=== PATIENT | female | born 1985 | race Caucasian/White ===

== ENCOUNTER → 2018-01-28 09:00 | Outpatient (CLI) | payer OTHER, SELFPAY ==
[2018-02-03 14:10] LABS: HPV APTIMA, High Risk Negative (Negative)
== END ==
PROVIDERS: Family Provider Family Medicine; PCP Family Medicine; Referring Provider Obstetrics & Gynecology; Visit Provider Obstetrics & Gynecology
DX: Z12.4 Encounter for screening for malignant neoplasm of cervix (principal)
CPT/HCPCS: 87624; 88175; G0145

== ENCOUNTER → 2018-11-24 11:31 | Outpatient (CLI) | payer OTHER, SELFPAY ==
[2018-11-24 11:15] VITALS: BMI 21.1
[2018-11-24 12:02] LABS: Absolute Lymphocyte Count 2.31 X10^3/uL (0.83-4.51); Absolute Neutrophil Count 9.6 X10^3/uL (2.0-7.7); Basophil# 0.05 X10^3/uL; Basophil% 0.4 % (0-1); Eosinophil# 0.09 X10^3/uL; Eosinophils% 0.7 % (0-5); Hematocrit 43.3 % (37-47); Hemoglobin 15.2 g/dL (12.0-15.0); Lymphocyte # 2.31 X10^3/ul (4.0); Lymphocyte % 18.1 % (19-41); Mean Corp Hgb Conc 35.1 g/dL (32-36); Mean Corpuscular Hgb 32.1 pg (27.0-32.0); Mean Corpuscular Volume 91.4 fL (81-99); Monocyte# 0.66 X10^3/uL; Monocyte% 5.2 % (0-10); NRBC Flagged by Analyzer 0 % (0-5); Neutrophil # 9.62 X10^3/uL (2.7-7.7); Neutrophil % 75.1 % (47-70); Platelet Count 309 K/mm3 (150-450); RBC Distribution Width SD 40.3 fl (35.1-43.9); Red Blood Count 4.74 M/mm3 (4.2-5.4); White Blood Count 12.8 K/mm3 (4.4-11.0)
[2018-11-24 13:30] LABS: HIV - WCH Non-Reactive (Nonreactive); Hepatitis B Surface Antigen Non-Reactive (Nonreactive); Rubella IgG 76.6 IU/mL
[2018-11-27 02:05] LABS: Rapid Plasmin Reagin (RPR) NONREACTIVE (NONREACTIVE)
== END ==
PROVIDERS: Family Provider Family Medicine; PCP Family Medicine; Visit Provider Obstetrics & Gynecology
DX: Z34.90 Encounter for supervision of normal pregnancy, unspecified, unspecified trimester (principal)
CPT/HCPCS: 36415; 85025; 86592; 86703; 86762; 86850; 86900; 86901; 87340

== ENCOUNTER → 2018-11-24 14:42 | Outpatient (CLI) | payer OTHER, SELFPAY ==
[2018-11-24 12:20] VITALS: BMI 21.1
[2018-11-24 17:14] LABS: Chlamydia Trachomatis by PCR Negative (Negative); Neisserai gonorrhoeae by PCR Negative (Negative); Probe Check PASS; Sample Adequacy Control PASS; Specimen Processing Control PASS
== END ==
PROVIDERS: Family Provider Family Medicine; PCP Family Medicine; Referring Provider Obstetrics & Gynecology; Visit Provider Obstetrics & Gynecology
DX: Z34.90 Encounter for supervision of normal pregnancy, unspecified, unspecified trimester (principal)
CPT/HCPCS: 87086; 87088; 87491; 87591

== ENCOUNTER → 2018-12-04 08:51 | Outpatient (CLI) | payer OTHER, SELFPAY ==
[2018-11-24 12:20] VITALS: BMI 21.1
== END ==
PROVIDERS: Family Provider Family Medicine; PCP Family Medicine; Referring Provider Obstetrics & Gynecology; Visit Provider Obstetrics & Gynecology
DX: Z34.81 Encounter for supervision of other normal pregnancy, first trimester (principal)

== ENCOUNTER → 2019-02-12 07:53 | Outpatient (CLI) | payer OTHER, SELFPAY ==
[2019-01-22 11:34] VITALS: BMI 21.1
--- NOTE | 2019-02-12 07:56 | US_ITS ---
STUDY: SECOND AND THIRD TRIMESTER OBSTETRICAL ULTRASOUND REASON FOR EXAM: Female, 33 years old anatomy LMP: TECHNIQUE: Transabdominal TECHNICAL QUALITY: Adequate. PRIOR ULTRASOUND: None. FINDINGS: There is a single intrauterine fetus. The fetus is in a variable presentation. There is demonstrated cardiac activity with a heart rate of 155 bpm. There is a normal amniotic fluid volume. The largest amniotic fluid pocket measures 6.1 x 5.1 cm.The placenta is posterior and fundal There are Grade 0 placental changes. The cervix measures 2.9 cm in length. The bilateral adnexal regions are normal. BIOMETRY: BPD: 4.2 cm: 18 weeks, 4 days HC: 16.6 cm: 19 weeks, 1 days AC: 14.7 cm: 20 weeks, 0 days FL: 3 cm: 19 weeks, 1 days CI: 0.72 FL/BPD: 0.71 FL/HC: FL/AC: 0.2 HC/AC: 1.13 age by current US: 19 weeks, 2 days. [place] by current US: July 07, 2019. Estimated weight: 301 grams, +/- 45 grams, 14.29 %. age by prior US: weeks, days. [place] by prior US: . Age by LMP: 20 weeks, 1 days. [place] by LMP: July 01, 2019. ANATOMY: Cranium: Normal lateral ventricles. Normal choroid plexus. Normal cerebellum. Normal cisterna magna. Normal face, nose and lips. Chest: Normal 4-chamber heart. Abdomen/Pelvis: Normal diaphragm. Normal stomach. Normal abdominal wall. Normal cord insertion. Normal 3 vessel cord. Normal kidneys. Normal bladder. Spine: Normal cervical spine. Normal thoracic spine. Normal lumbar spine. Normal sacrum. Extremities: Normal bilateral upper extremities. Normal bilateral lower extremities. US/OB Anatomy Scan IMPRESSION: Viable intrauterine gestation approximately 19-20 weeks gestational age. No anomalies identified at this time Electronically Signed: Patel Meza MD at 19:47 EST , Service support ,
== END ==
PROVIDERS: Family Provider Family Medicine; PCP Family Medicine; Referring Provider Obstetrics & Gynecology; Visit Provider Obstetrics & Gynecology
DX: Z36.9 Encounter for antenatal screening, unspecified (principal)
CPT/HCPCS: 76805

== ENCOUNTER → 2019-02-27 14:27 | Outpatient (CLI) | payer OTHER, SELFPAY ==
[2019-02-27 10:00] VITALS: BMI 21.1
[2019-02-27 14:29] LABS: Bacteria 0 SEEN /hpf (None Seen); Mucous, Urine 0 SEEN /hpf (<or=2+); Red Blood Cells-Urine 0 SEEN /hpf (0-5)
[2019-02-27 15:11] LABS: Color, Urine Straw (Yellow); Glucose, Dipstick Normal (Normal); Ketone-Dipstick Negative (Negative); Leukocyte Esterase-Dipstick 25 /ul (Negative); Nitrite-Dipstick Negative (Negative); Occult Blood-Urine Negative /ul (Negative); Protein-Dipstick Negative (Negative); Specific Gravity, Urine 1.005 (1.002-1.030); Urine Bilirubin Dipstick Negative (Negative); Urine Clarity Clear (Clear); Urine Urobilinogen Normal (Normal)
[2019-02-27 15:20] LABS: Squamous Epithelial Cells - UA 0-5 SEEN /hpf (5-10); White Blood Cells 0-5 SEEN /hpf (0-5)
== END ==
PROVIDERS: Family Provider Family Medicine; PCP Family Medicine; Referring Provider Physician Assistant; Visit Provider Physician Assistant
DX: R35.0 Frequency of micturition (principal); R39.15 Urgency of urination
CPT/HCPCS: 81001; 87086; 87088

== ENCOUNTER → 2019-04-05 10:20 | Outpatient (CLI) | payer OTHER, SELFPAY ==
[2019-03-25 10:02] VITALS: BMI 21.1
[2019-04-05 10:56] LABS: Absolute Lymphocyte Count 2.16 X10^3/uL (0.83-4.51); Absolute Neutrophil Count 7.8 X10^3/uL (2.0-7.7); Basophil# 0.05 X10^3/uL; Basophil% 0.5 % (0-1); Eosinophil# 0.07 X10^3/uL; Eosinophils% 0.7 % (0-5); Hematocrit 37.1 % (37-47); Hemoglobin 12.7 g/dL (12.0-15.0); Lymphocyte # 2.16 X10^3/ul (4.0); Lymphocyte % 20.2 % (19-41); Mean Corp Hgb Conc 34.2 g/dL (32-36); Mean Corpuscular Hgb 32.2 pg (27.0-32.0); Mean Corpuscular Volume 93.9 fL (81-99); Mean Platelet Vol. 9.2 fl (6.2-12.0); Monocyte# 0.55 X10^3/uL; Monocyte% 5.1 % (0-10); NRBC Flagged by Analyzer 0 % (0-5); Neutrophil % 72.8 % (47-70); Platelet Count 288 K/mm3 (150-450); RBC Distribution Width CV 12.2 % (11.6-14.6); RBC Distribution Width SD 41.9 fl (35.1-43.9); Red Blood Count 3.95 M/mm3 (4.2-5.4); White Blood Count 10.7 K/mm3 (4.4-11.0)
[2019-04-05 11:19] LABS: Glucose Challenge Gest 1H 50g 154 mg/dL (70-140)
== END ==
PROVIDERS: Family Provider Family Medicine; PCP Family Medicine; Referring Provider Obstetrics & Gynecology; Visit Provider Obstetrics & Gynecology
DX: Z34.81 Encounter for supervision of other normal pregnancy, first trimester (principal)
CPT/HCPCS: 36415; 82950; 85025

== ENCOUNTER → 2019-05-05 07:03 | Outpatient (CLI) | payer OTHER, SELFPAY ==
[2019-04-22 10:42] VITALS: BMI 21.1
[2019-05-05 08:09] LABS: Glucose GTT-Gestation. Fasting 80 mg/dL (<105)
[2019-05-05 09:26] LABS: Glucose GTT-Gestational 1 Hr 211 mg/dL (<190)
[2019-05-05 09:55] LABS: Glucose GTT-Gestational 2 Hr 231 mg/dL (<165)
[2019-05-05 11:34] LABS: Glucose GTT-Gestational 3 Hr 184 L (<145)
== END ==
PROVIDERS: PCP Family Medicine; Referring Provider Obstetrics & Gynecology; Visit Provider Obstetrics & Gynecology
DX: Z34.90 Encounter for supervision of normal pregnancy, unspecified, unspecified trimester (principal)
CPT/HCPCS: 36415; 82951; 82952

== ENCOUNTER → 2019-06-03 15:21 | Outpatient (CLI) | payer OTHER, SELFPAY ==
[2019-06-03 10:14] VITALS: BMI 21.1
== END ==
PROVIDERS: PCP Family Medicine; Referring Provider Obstetrics & Gynecology; Visit Provider Obstetrics & Gynecology
DX: Z34.93 Encounter for supervision of normal pregnancy, unspecified, third trimester (principal); Z3A.36 36 weeks gestation of pregnancy
CPT/HCPCS: 87081

== ENCOUNTER → 2019-06-09 07:55 | Outpatient (CLI) | payer OTHER, SELFPAY ==
[2019-05-21 10:16] VITALS: BMI 21.1
[2019-06-03 10:14] VITALS: BMI 21.1
--- NOTE | 2019-06-09 07:56 | US_ITS ---
STUDY: SECOND AND THIRD TRIMESTER OBSTETRICAL ULTRASOUND REASON FOR EXAM: Female, 33 years old growth -- gestational DM LMP: September 24, 2018. TECHNIQUE: Transabdominal TECHNICAL QUALITY: Adequate. PRIOR ULTRASOUND: Comparison is made with prior examination dated February 12, 2019. FINDINGS: There is a single intrauterine fetus. The fetus is in a cephalic presentation. There is demonstrated cardiac activity with a heart rate of 138 bpm. There is a normal amniotic fluid volume. The largest amniotic fluid pocket measures 5.3 cm. The amniotic fluid index (POOL) is 12.8 cm. The placenta is fundal in location. There are Grade 1 placental changes. The cervix length is not measured due to the position of the head. The bilateral adnexal regions are not visualized. BIOMETRY: BPD: 8.7 cm: 35 weeks, 0 days HC: 31.88 cm: 35 weeks, 6 days AC: 33.67 cm: 37 weeks, 4 days FL: 6.68 cm: 34 weeks, 2 days CI: 81% FL/BPD: 77% FL/HC: FL/AC: 20% HC/AC: 0.95 age by current US: 35 weeks, 3 days. [place] by current US: July 11, 2019. Estimated weight: 2911 grams, +/- 431 grams, 39 %. age by prior US: 36 weeks, 0 days. [place] by prior US: July 07, 2019. Age by LMP: 36 weeks, 6 days. [place] by LMP: July 01, 2019.. US/OB Limited With Biometrics IMPRESSION: Single live uterine gestation with a mean gestational age of 36 weeks. The measurements obtained today fall within the normal expected range. Electronically Signed: Gianluca Gaytan, at 11:17 EDT , Service support ,
== END ==
PROVIDERS: PCP Family Medicine; Referring Provider Obstetrics & Gynecology; Visit Provider Obstetrics & Gynecology
DX: O24.419 Gestational diabetes mellitus in pregnancy, unspecified control (principal); Z3A.00 Weeks of gestation of pregnancy not specified
CPT/HCPCS: 76816

== ENCOUNTER 2019-06-30 21:15 | Inpatient (IN) | payer OTHER, SELFPAY ==
[2019-06-09 08:39] VITALS: BMI 21.1
[2019-06-30 09:32] VITALS: BMI 21.1
[2019-06-30 20:59] VITALS: BP 117/83; PULSE 78; TEMP 37
[2019-06-30 21:03] VITALS: BMI 24.9
[2019-06-30 22:15] LABS: Absolute Lymphocyte Count 2.57 X10^3/uL (0.83-4.51); Absolute Neutrophil Count 12.4 X10^3/uL (2.0-7.7); Basophil# 0.05 X10^3/uL; Basophil% 0.3 % (0-1); Eosinophil# 0.06 X10^3/uL; Eosinophils% 0.4 % (0-5); Hematocrit 35.2 % (37-47); Hemoglobin 11.6 g/dL (12.0-15.0); Lymphocyte # 2.57 X10^3/ul (4.0); Mean Corpuscular Hgb 29.5 pg (27.0-32.0); Mean Corpuscular Volume 89.6 fL (81-99); Mean Platelet Vol. 10.1 fl (6.2-12.0); Monocyte% 5.6 % (0-10); NRBC Flagged by Analyzer 0 % (0-5); Neutrophil # 12.37 X10^3/uL (2.7-7.7); Neutrophil % 77.1 % (47-70); Platelet Count 368 K/mm3 (150-450); RBC Distribution Width CV 12.3 % (11.6-14.6); RBC Distribution Width SD 40.5 fl (35.1-43.9); Red Blood Count 3.93 M/mm3 (4.2-5.4)
[2019-06-30 22:32] VITALS: TEMP 36.6; O2SAT 97
[2019-06-30 22:33] VITALS: O2SAT 97
[2019-06-30 22:34] VITALS: BP 123/74; PULSE 104; TEMP 36.4
[2019-06-30 22:46] LABS: Bedside Glucose 85 mg/dL (70-110)
[2019-07-01] VITALS (18 sets, daily range): BP systolic 98–122; BP diastolic 56–79; PULSE 62–85; RESP 16–18; TEMP 36.2–36.9; O2SAT 99
[2019-07-01] MEDS: Oxytocin 30 units/NS 500 ml 30 UNITS/500 ML IV.SOLN 334 UNITS IV (00:10)
--- NOTE | 2019-07-01 00:25 | PCM.HPOB.BLA ---
- Problem List (1) Active labor at term Status: Acute (2) Gestational diabetes mellitus (GDM) Status: Acute Qualifiers: Comment: diet controlled. growth us at 36 weeks WNL (3) Influenza vaccine administered Status: Acute Comment: given on 12/25/18 (4) Status: Acute Qualifiers: Comment: NIPT low risk. declined carrier and ntd screening. Anatomy US normal (5) Supervision of normal Status: Acute Qualifiers: Comment: PRR [place] 07/01/19 girl Hortensia Grubbs Randy (6) Dysthymia Status: Chronic Comment: therapy with marisol garcia History and Physical Date of Admission: 07/01/19 Intake Vital Signs 06/30/19 BMI 21.1 06/30/19 Height 5 ft 1 in 06/30/19 BP 112/78 Intake Visit Reasons: est ob 40w, wants SM Chief Complaint: est ob [employer] Required: No Is patient in pain?: No Allergies Penicillins [PCN] Adverse Reaction (Verified 06/30/19 09:31) Unknown Medications No122/Iron/Folic Acid [ Multi Tablet] 1 ea PO DAILY 01/28/16 [History Confirmed 06/30/19] hydroxyzine pamoate 50 mg capsule 50 mg PO TID-QID PRN #30 cap 04/22/19 [Rx Confirmed 06/30/19] alprazolam 0.5 mg tablet 0.5 mg PO BID PRN #14 tab 04/29/19 [Rx Confirmed 06/30/19] blood sugar diagnostic See Rx Instructions .ROUTE .MEDSUPPLY #10 ea 05/06/19 [History Confirmed 06/30/19] blood-glucose meter See Rx Instructions .ROUTE .MEDSUPPLY #1 ea 05/06/19 [History Confirmed 06/30/19] lancets See Rx Instructions .ROUTE .MEDSUPPLY #50 ea 05/06/19 [History Confirmed 06/30/19] Last Menstral Period: 09/24/18 Zika: Zika virus screening: Negative : No PFSH PFSH Medical History Abnormal Pap smear of cervix (Acute) Surgical History S/P hernia repair (Resolved) S/P tonsillectomy (Resolved) Family History Mother Brain aneurysm Father Depression Grandfather CVA (cerebral vascular accident) Heart disease Grandmother Cancer Social History (Updated 06/30/19 @ 09:[address] Gaby Argueta MD) Smoking Status: Never smoker alcohol intake: never substance use type: does not use caffeine: Yes what type of physical activity do you participate in: walking, weight training frequency: 3-4 times per week seatbelt use: always do you feel safe at home: Yes additional social history: [employer] at [employer] Patient is research associate at [employer] Pregancy History 2 Elective abortions Hx Para 1 Spontaneous abortions Hx # Term Pregnancies Ectopic pregnancies Hx # Pregnancies Multiple births # of living children Past Pregnancies Del. Date Name GA/Weeks Outcome Route Bth Weight Gen Labor Lgth Anesthesia Del Locatn Provider FOB 05/22/16 Hum[place] 41 live - full term 7lbs 6oz Female 5 hours none [facility] Dr. Kendall Padilla Delivery Date: 05/22/16 On 01/28/18 @ 10:03 Katey Reynolds Gestational diabetes HPI est ob 40w, wants SM: Details: SHAUNA GONZALEZ is a 33 year old at 40 weeks presents in active labor with regular contractions. Patient denies any vaginal bleeding or loss of fluid admits good movement. Blood sugars are well controlled. OB Visit [place] Calculator Estimated Delivery Date Method Current WG Current Estimate 07/01/19 LMP (Certain) 39w 6d Expected Delivery Route/Plan Labor Preferences- labor support person: Randy pain management options preferred: minimal intervention cut cord/dad catch: yes : yes PP control planned: [] discussed possible routes of delivery and associated risks: [] special requests: [] Specific Issue/Plans flu vaccine: given tdap vaccine: declined rhogam: no LARC form signed: declined movement and labor precautions reviewed. Problem list reviewed and updated with the most current plan of care details and appropriate orders placed. Relevant counseling for the gestational age provided. Continue routine care and follow up unless otherwise noted in visit notes/problem list details Initial Weight: 112 lb Date EGA Weight BP Urine Prot Glucose FHR FuHt Pres Dilation Effaced St Visit Note 12/25/18 13w 1d 113 lb (+16 oz) 106/82 Negative Negative 160 01/22/19 17w 1d 114 lb (+2 lb) 102/64 Negative Negative 150 no vb lof 02/22/19 21w 4d 117 lb 6 oz (+5 lb 6 oz) 90/60 Negative Negative 156 No VB, LOF. Good FM. Doing well 03/25/19 26w 0d 122 lb (+10 lb) 118/75 Negative Negative 145 SM- no vb lof good fm no reg ctx 04/22/19 30w 0d 122 lb (+10 lb) 114/70 140 SM- no vb lof good fm no regualr ctx SM- no vb lof good fm no regualr ctx discussed anxiety meds to take 3 hour gtt. few home BS checks WNL 05/06/19 32w 0d 125 lb 2 oz (+13 lb 2 oz) 112/78 Negative Negative 140 SM- no vb lof good fm no regular ctx 05/21/19 34w 1d 126 lb (+14 lb) 126/78 Negative Negative 140 SM- no vb lof good fm no regular ctx BS well controlled 06/03/19 36w 0d 129 lb (+17 lb) 122/82 Negative Negative 130 36 Cephalic 1 SM- no vb lof good fm no regular ctx BS well conrolled gbs today 06/09/19 36w 6d 129 lb (+17 lb) 104/82 Negative Negative 159 37 Cephalic 1.5 30 -3 MH-NO Vb, LOF. Occa BH. Good FM. BS controlled. Now working at home. MH-NO Vb, LOF. Occa BH. Good FM. BS controlled. Now working at home. Growth US today and was told 38% 06/17/19 38w 0d 130 lb 2 oz (+18 lb 2 oz) 120/80 150 38 Cephalic 2 50 -1 SM- no vb lof good fm no regular ctx 06/24/19 39w 0d 131 lb 6 oz (+19 lb 6 oz) 110/80 Negative Negative 150 39 Cephalic 3 50 -1 SM- no vb lof good fm no regular ctx. membranes swept. BS well controlled 06/30/19 39w 6d 112/78 140 40 Cephalic 4 90 -1 SM- BS controlled, no vb lof good fm no regular ctx Notes Visit Date: 06/30/19 ??No visit notes to display Visit Date: 06/24/19 ??No visit notes to display Visit Date: 06/17/19 ??No visit notes to display Visit Date: 06/09/19 ??No visit notes to display Visit Date: 06/03/19 ??No visit notes to display Visit Date: 05/21/19 ??No visit notes to display Visit Date: 05/06/19 ??No visit notes to display Visit Date: 04/22/19 ??No visit notes to display Visit Date: 03/25/19 ??No visit notes to display Visit Date: 02/22/19 ??No VB, LOF. Good FM. Doing well ??TANA Singh on 02/22/19 Visit Date: 01/22/19 ??no vb lof ??Gaby Argueta MD on 01/22/19 Visit Date: 12/25/18 ??No visit notes to display ACOG First Trimester First Trimester: Second Trimester Second Trimester: Signs and Symptoms of Labor, Selecting a care provider, Reproductive Life Planning, Care Planning, Tobacco Cessation, Depression/Anxiety and Intimate Partner Violence Third Trimester Third Trimester: Pain Management Plans, Labor support person(s), Immediate Larc, Movement Monitoring and Infant Feeding Yes ; discussed Trial of Labor after Counseling or discussed Circumcision preference Diagnostics Diagnostics Diagnostics Antibody Screen Cancelled 05/05/19 Gest Glucose Tolerance MG/DL 05/05/19 Glucose 1 Hr 50 gm 154 mg/dL (70-140) H 04/05/19 Hgb 12.7 g/dL (12.0-15.0) 04/05/19 Hct 37.1 % (37-47) 04/05/19 Details: HIV: Urine Culture: Sequential Screen: NIPT Screen: ROS Const Reports system reviewed and no additional complaints, except as docu Card Reports system reviewed and no additional complaints, except as docu Resp Reports system reviewed and no additional complaints, except as docu GI Reports system reviewed and no additional complaints, except as docu, Reports nausea Reports system reviewed and no additional complaints, except as docu Musc Reports system reviewed and no additional complaints, except as docu Exam Const General: cooperative, healthy appearing, comfortable, anxious [facility] Head: normal to inspection Nose: external nose normal Face and sinus: normal facial exam Neck Neck: normal visual inspection, full ROM, no lymphadenopathy Thyroid: thyroid normal Chest Chest palpation & inspection: normal inspection of the chest Resp Effort & Inspection: normal respiratory effort GI Inspection: normal to inspection Palpation: soft, other (gravid uterus) Other: infant vertex and appropriate size for gestational age Other: Cervical Exam: Extrem General: pedal edema Assessment & Plan Problems 1. Diet controlled gestational diabetes mellitus (GDM) in third trimester O24.410 2. Influenza vaccine administered Z23 3. 39 weeks gestation of Z3A.39 4. Encounter for supervision of other normal in first trimester Z34.81 5. Dysthymia F34.1 Patient presents IAL, plan expectant management for , AROM clear fluid. Pain management: Minimal intervention. GBS negative. Management of any complications: GDM A1 check blood sugars every 1 hour in labor I have reviewed the [facility] and made any clinically relevant updates. Orders Orders: POC Urinalysis 2 Dip (Clinic) Today Coding Level of Care Code OB Routine Diagnoses Diet controlled gestational diabetes mellitus (GDM) in third trimester O24.410 ??Gestational diabetes mellitus control: diet-controlled ??Trimester: third trimester Influenza vaccine administered Z23 39 weeks gestation of Z3A.39 ??Weeks of gestation: 39 weeks Encounter for supervision of other normal in first trimester Z34.81 ??Normal : other normal ??Trimester: first trimester Dysthymia F34.1
--- NOTE | 2019-07-01 00:27 | PCM.OPRPT ---
Problem List (1) Active labor at term Status: Acute (2) Gestational diabetes mellitus (GDM) Status: Acute Qualifiers: Comment: diet controlled. growth us at 36 weeks WNL (3) Influenza vaccine administered Status: Acute Comment: given on 12/25/18 (4) Status: Acute Qualifiers: Comment: NIPT low risk. declined carrier and ntd screening. Anatomy US normal (5) Supervision of normal Status: Acute Qualifiers: Comment: PRR [place] 07/01/19 girl Hortensia Grubbs Randy (6) Dysthymia Status: Chronic Comment: therapy with marisol garcia Vaginal Delivery Maternal Presentation: Active Labor ial 40 weeks Amniotic Membrane Rupture Type: Artificial Amniotic Fluid Description: Clear Final [place]: 07/01/19 Gestational age: 40 Weeks and 0 Days Date of Procedure: 07/01/19 Pre-Operative Diagnosis: ial Post-Operative Diagnosis: same Surgery/ Procedure Performed: Spontaneous Vaginal Delivery Type of Anesthesia: None Description of Procedure: Patient began pushing and delivered the head in the DESTINEY presentation. The head was delivered atraumatically. The anterior and posterior shoulders delivered without complication followed by the rest of the and the infant was placed on the maternal abdomen. Delayed cord clamping was employed for approximately 60 seconds. Cord was clamped and cut and gentle traction was applied to the cord and the placenta delivered spontaneously immediately following it was noted to be intact with three-vessel cord. The perineum and vagina were inspected and noted to have no laceration. EBL was 100 cc. Patient and infant tolerated delivery well. Presentation: DESTINEY Placental Delivery Description: Spontaneous Placenta Disposition: [facility] Cord Entanglement: None Estimated Blood Loss: 100 A gender: Female Episiotomy Description: None Laceration: None Medications given after delivery: IV Pitocin Complications: None Multi Select Codes - Urinary/Genital Urinary/Genital CPT Codes: 78900 Vaginal Delivery [facility]
--- NOTE | 2019-07-01 00:31 | DCINST_ITS ---
Discharge Diet: No Restrictions Discharge Activity: Return to Normal Activity, May not drive while taking narcotic pain medications., May Shower May resume sexual activity in: 4-6 weeks Call your doctor if your incision/area has: Continuous Slow Oozing, Sudden Increased Bleeding, Increased Pain/ Swelling, Increased Redness, Foul Smelling Discharge Additional Instructions: If you experience any of the following, contact your healthcare provider. * Bleeding that soaks a pad every hour for 2 hours * Fever 100.4 or higher * Unrelieved incision or abdominal pain * Swelling, redness, discharge or bleeding from your incision or episiotomy site * Your incision begins to separate * Problems urinating (including inability to urinate or burning while urinating). * Visual changes * Severe headache * Flu-like symptoms * Pain or redness in one of both of your breasts * Pain, warmth, tenderness or swelling in your legs, especially the calf area * Frequent nausea and vomiting * Symptoms of depression or anxiety If you experience any of the following, call 911 or go to the nearest Emergency Room. * Chest pain * Problems breathing * Seizure activity * Partial or complete paralysis of a body part, slurred speech, weakness or drooping of the face, or a sudden inability to walk or hold your balance Allergies/Adverse Reactions: Allergies Penicillins [PCN] Adverse Reaction (Verified 06/30/19 21:05) Unknown Medications to take at Discharge No122/Iron/Folic Acid [ Multi Tablet] 1 ea PO DAILY 01/28/16 Please Follow Up With: Gaby Argueta MD - [phone] When: Call to make an appointment with your doctor in 6 weeks. If you had elevated Blood pressure or 4th degree laceration you will need to be seen in 2 weeks. Primary Care Physician: Mika Steven MD [Primary Care Provider] - Test Results: Test results from this visit will be discussed in further detail at your follow- up appointment, if applicable.
--- NOTE | 2019-07-01 00:31 | PCM.DCVAG ---
Discharge Diet: No Restrictions Discharge Activity: Return to Normal Activity, May not drive while taking narcotic pain medications., May Shower May resume sexual activity in: 4-6 weeks Call your doctor if your incision/area has: Continuous Slow Oozing, Sudden Increased Bleeding, Increased Pain/ Swelling, Increased Redness, Foul Smelling Discharge Additional Instructions: If you experience any of the following, contact your healthcare provider. Bleeding that soaks a pad every hour for 2 hours Fever 100.4 or higher Unrelieved incision or abdominal pain Swelling, redness, discharge or bleeding from your incision or episiotomy site Your incision begins to separate Problems urinating (including inability to urinate or burning while urinating). Visual changes Severe headache Flu-like symptoms Pain or redness in one of both of your breasts Pain, warmth, tenderness or swelling in your legs, especially the calf area Frequent nausea and vomiting Symptoms of depression or anxiety If you experience any of the following, call 911 or go to the nearest Emergency Room. Chest pain Problems breathing Seizure activity Partial or complete paralysis of a body part, slurred speech, weakness or drooping of the face, or a sudden inability to walk or hold your balance Allergies/Adverse Reactions: Allergies Penicillins [PCN] Adverse Reaction (Verified 06/30/19 21:05) Unknown Medications to take at Discharge No122/Iron/Folic Acid [ Multi Tablet] 1 ea PO DAILY 01/28/16 Please Follow Up With: Gaby Argueta MD - [phone] When: Call to make an appointment with your doctor in 6 weeks. If you had elevated Blood pressure or 4th degree laceration you will need to be seen in 2 weeks. Primary Care Physician: Mika Steven MD [Primary Care Provider] - Test Results: Test results from this visit will be discussed in further detail at your follow-up appointment, if applicable.
[2019-07-01] MEDS: Naproxen 250 MG Tablet 500 MG PO ×3 (01:02→21:14)
[2019-07-01 01:11] LABS: Bedside Glucose 112 mg/dL (70-110)
--- NOTE | 2019-07-01 03:40 | NURSING ---
Report given to Ilana ROSARIO, taking over pt and care at this time.
[2019-07-01 06:55] LABS: Bedside Glucose 75 mg/dL (70-110)
[2019-07-01] MEDS: Acetaminophen 500 MG Tablet 1000 MG PO ×2 (07:54→18:39)
[2019-07-02] VITALS: BP 95/56; PULSE 71; RESP 16; TEMP 36.8
[2019-07-02 04:00] VITALS: BP 100/55; PULSE 68; RESP 17; TEMP 36.6
[2019-07-02] MEDS: Acetaminophen 500 MG Tablet 1000 MG PO (04:43)
--- NOTE | 2019-07-02 07:52 | PCM.PN.OB ---
Patient Problems: Active and Suspected Problems (Last Reviewed 06/30/19 @ 09:31 by Юлия Raymundo) Active labor at term (Acute) Subjective: Doing well, no complaints.Pain controlled. Denies CP, SOB, N,V. Ambulating well, tolerating po. Lochia moderate, going well. - Physical Exam Vitals/I&O's: Vital Signs Temp Pulse Resp BP Pulse Ox 97.9 F 68 17 100/55 L 99 07/02/19 04:00 07/02/19 04:00 07/02/19 04:00 07/02/19 04:00 07/01/19 02:05 Oxygen Delivery Method Room Air Weight: 131 lb 13.383 oz Body Mass Index (BMI) 24.9 Intake and Output for Last 24 Hours 06/30/19 07/01/19 07/02/19 23:59 23:59 23:59 Intake Total 1500.0 / 1500.0 Output Total 350 / 350 Balance 1150.0 / 1150.0 General: Alert, Oriented x3 Abdomen: Soft, Non-Distended, - - FF below U Current Medications Acetaminophen (Tylenol) 1,000 mg PO Q8H PRN PRN PRN Reason: Pain Score 1-3 Last Admin: 07/02/19 04:43 Dose: 1,000 mg Documented by: Bisacodyl (Dulcolax) 10 mg RECTAL UD PRN PRN Reason: If no BM Dextrose (D50w Syringe) 0 gm IV X1 PRN; Protocol PRN Reason: Hypoglycemia Dibucaine (Dibucaine) 1 applic TOPICAL TID PRN PRN; Protocol PRN Reason: Discomfort Glucagon () 1 mg IM .X1 PRN PRN Reason: Hypoglycemia Hydrocortisone (Hytone) 1 applic TOPICAL TID PRN PRN; Protocol PRN Reason: Discomfort Methylergonovine Maleate (Methergine) 0.2 mg IM X1 PRN PRN Reason: Excess bleeding/uterine atony Naproxen (Naprosyn) 500 mg PO Q8H PRN PRN PRN Reason: Pain Score 1-3/10 Last Admin: 07/01/19 21:14 Dose: 500 mg Documented by: Ondansetron HCl (Zofran) 4 mg IV Q4H PRN PRN PRN Reason: Nausea Oxycodone HCl (Oxyir) 5 - 10 mg PO Q4H PRN PRN PRN Reason: Pain Score 4-10/10 Senna/Docusate Sodium (Senokot-S, Claire-Colace) 1 - 2 tablet PO DAILY PRN PRN PRN Reason: Constipation Simethicone (Mylicon) 80 mg PO PCHS PRN PRN Reason: Indigestion/Stomach pain Sodium Chloride () 5 - 15 ml IV UD PRN PRN Reason: SALINE FLUSH Medical Necessity - Tobacco Use Smoking Status: Never smoker Assessment/Plan All Active Problems (Last Reviewed 06/30/19 @ 09:31 by Юлия Raymundo) Active labor at term (Acute) Gestational diabetes mellitus (GDM) (Acute) Influenza vaccine administered (Acute) (Acute) Supervision of normal (Acute) Abnormal glucose affecting (Resolved) History of gestational diabetes (Resolved) s/p PPD # 1 1. routine post delivery care 2. breast feeding- support given 3. rh positive 4. rubella immune 5. Glucose WNL 6. home today
[2019-07-02 08:47] VITALS: BP 102/64; PULSE 70; RESP 16; TEMP 36.6
[2019-07-02 11:03] VITALS: BP 102/64; PULSE 70; RESP 16; TEMP 36.6
== END 2019-07-02 12:25 | disposition home or self-care (01) | DRG 807 ==
LOC: WPOUT 21:19 → WP 21:19
PROVIDERS: Admitting Provider Obstetrics & Gynecology; PCP Family Medicine; Visit Provider Obstetrics & Gynecology
DX: O24.420 Gestational diabetes mellitus in childbirth, diet controlled (principal); O99.344 Other mental disorders complicating childbirth; F34.1 Dysthymic disorder; Z3A.40 40 weeks gestation of pregnancy; Z37.0 Single live birth
CPT/HCPCS: 59050; 82962; 85025; 86850; 86900; 86901; 99218; J7120; G0378

== ENCOUNTER 2020-07-13 10:23 | Outpatient (RCR) | payer OTHER, SELFPAY ==
[2019-08-17 14:24] VITALS: BMI 24.9
== END 2020-08-29 23:59 ==
LOC: IMMUN 10:23
PROVIDERS: PCP Family Medicine; Referring Provider Family Medicine; Visit Provider Family Medicine
DX: Z23 Encounter for immunization (principal)
CPT/HCPCS: 0001A; 0002A; 91300

== ENCOUNTER → 2020-08-17 | Outpatient (CLI) | payer OTHER, SELFPAY ==
[2020-08-17 14:31] VITALS: BMI 24.9
[2020-08-23 14:12] LABS: HPV APTIMA, High Risk Negative (Negative)
== END | disposition home or self-care (01) ==
PROVIDERS: PCP Family Medicine; Referring Provider Obstetrics & Gynecology; Visit Provider Obstetrics & Gynecology
DX: N93.0 Postcoital and contact bleeding (principal); Z12.4 Encounter for screening for malignant neoplasm of cervix
CPT/HCPCS: 87070; 87205; 87624; 88175; G0145

== ENCOUNTER → 2021-08-23 | Outpatient (CLI) | payer OTHER, SELFPAY ==
[2021-08-23 11:36] LABS: Amphetamine Urine VISTA NEGATIVE (<1000 ng/mL); Barbiturate Urine VISTA NEGATIVE (< 200 ng/mL); Benzodiazepine Urine VISTA NEGATIVE (< 200 ng/mL); Cocaine Urine VISTA NEGATIVE (< 300 ng/mL); Ecstacy Urine VISTA NEGATIVE (< 500 ng/mL); Methadone Urine VISTA NEGATIVE (< 300 ng/mL); PCP Urine VISTA NEGATIVE (< 25 ng/mL); THC Urine VISTA NEGATIVE (< 50 ng/mL); Vista UDS pH Range 7
[2021-08-24 22:06] LABS: Chlamydia By Nucleic Acid AMP Negative (Negative)
[2021-08-24 22:32] LABS: Gonococcus By Nucleic Acid AMP Negative (Negative)
== END | disposition home or self-care (01) ==
LOC: LABSPEC 10:55
PROVIDERS: PCP Family Medicine; Visit Provider Obstetrics & Gynecology
DX: Z34.90 Encounter for supervision of normal pregnancy, unspecified, unspecified trimester (principal)
CPT/HCPCS: 80307; 87086; 87088; 87491; 87591

== ENCOUNTER → 2021-08-27 | Outpatient (CLI) | payer OTHER, SELFPAY ==
[2021-08-27 09:04] LABS: Absolute Lymphocyte Count 1.87 X10^3/uL (0.83-4.51); Absolute Neutrophil Count 6.9 X10^3/uL (2.0-7.7); Basophil# 0.04 X10^3/uL; Basophil% 0.4 % (0-1); Eosinophils% 1.1 % (0-5); Hematocrit 40.9 % (37-47); Hemoglobin 14.5 g/dL (12.0-15.0); Lymphocyte # 1.87 X10^3/ul (0.83-4.51); Lymphocyte % 19.8 % (19-41); Mean Corp Hgb Conc 35.5 g/dL (32-36); Mean Corpuscular Hgb 32.7 pg (27.0-32.0); Mean Corpuscular Volume 92.1 fL (81-99); Monocyte% 5.3 % (0-10); NRBC Flagged by Analyzer 0 % (0-5); Platelet Count 360 K/mm3 (150-450); RBC Distribution Width CV 12.4 % (11.6-14.6); RBC Distribution Width SD 41.6 fl (35.1-43.9); Red Blood Count 4.44 M/mm3 (4.2-5.4); White Blood Count 9.5 K/mm3 (4.4-11.0)
[2021-08-27 09:11] LABS: Glucose Challenge Gest 1H 50g 112 mg/dL (70-140)
[2021-08-27 10:11] LABS: NATERA MAILED SPECIMEN
[2021-08-27 10:21] LABS: HIV - WCH Non-Reactive (Nonreactive); Hepatitis B Surface Antigen Non-Reactive (Nonreactive); Hepatitis C Antibody Non-Reactive (Nonreactive); Rubella IgG Reactive (Nonreactive); Syphilis Antibodies Non-reactive
== END | disposition home or self-care (01) ==
LOC: PAVLAB 08:37
PROVIDERS: PCP Family Medicine; Referring Provider Obstetrics & Gynecology; Visit Provider Obstetrics & Gynecology
DX: Z34.90 Encounter for supervision of normal pregnancy, unspecified, unspecified trimester (principal)
CPT/HCPCS: 36415; 82950; 85025; 86703; 86762; 86780; 86803; 86850; 86900; 86901; 87340

== ENCOUNTER → 2021-12-27 | Outpatient (CLI) | payer OTHER, SELFPAY ==
[2021-12-27 16:22] LABS: Absolute Lymphocyte Count 2.58 X10^3/uL (0.83-4.51); Absolute Neutrophil Count 10.4 X10^3/uL (2.0-7.7); Basophil# 0.05 X10^3/uL; Basophil% 0.4 % (0-1); Eosinophil# 0.16 X10^3/uL; Eosinophils% 1.1 % (0-5); Hematocrit 37.4 % (37-47); Lymphocyte # 2.58 X10^3/ul (0.83-4.51); Lymphocyte % 18.5 % (19-41); Mean Corp Hgb Conc 34.8 g/dL (32-36); Mean Corpuscular Hgb 33.4 pg (27.0-32.0); Mean Corpuscular Volume 96.1 fL (81-99); Mean Platelet Vol. 9.2 fl (6.2-12.0); Monocyte# 0.74 X10^3/uL; Monocyte% 5.3 % (0-10); NRBC Flagged by Analyzer 0 % (0-5); Neutrophil # 10.37 X10^3/uL (2.7-7.7); Neutrophil % 74.1 % (47-70); Platelet Count 326 K/mm3 (150-450); RBC Distribution Width CV 12.6 % (11.6-14.6); Red Blood Count 3.89 M/mm3 (4.2-5.4)
[2021-12-27 16:33] LABS: Glucose Challenge Gest 1H 50g 104 mg/dL (70-140)
== END | disposition home or self-care (01) ==
LOC: LAB 15:10
PROVIDERS: PCP Family Medicine; Visit Provider Obstetrics & Gynecology
DX: Z34.92 Encounter for supervision of normal pregnancy, unspecified, second trimester (principal); Z3A.24 24 weeks gestation of pregnancy
CPT/HCPCS: 36415; 82950; 85025

== ENCOUNTER → 2022-02-19 | Outpatient (CLI) | payer OTHER, SELFPAY ==
--- NOTE | 2022-02-19 11:53 | US_ITS ---
STUDY: SECOND AND THIRD TRIMESTER OBSTETRICAL ULTRASOUND REASON FOR EXAM: Female, 36 years old growth LMP: 06/18/2021. TECHNIQUE: Transabdominal TECHNICAL QUALITY: Adequate. PRIOR ULTRASOUND: None. FINDINGS: There is a single intrauterine fetus. The fetus is in a transverse lie with the head on the maternal right side. There is demonstrated cardiac activity with a heart rate of 147 bpm. There is a normal amniotic fluid volume. The largest amniotic fluid pocket measures 4.4 cm. The amniotic fluid index (POOL) is 12.3 cm. The placenta is fundal in location. There are Grade 0 placental changes. The cervix measures 4.2 cm in length. The adnexal regions are not visualized. BIOMETRY: BPD: 8.74 cm: 35 weeks, 2 days HC: 31.81 cm: 35 weeks, 6 days AC: 29.72 cm: 33 weeks, 5 days FL: 6.09 cm: 31 weeks, 5 days CI: 79% FL/BPD: 70% FL/HC: FL/AC: 21% HC/AC: 1.07 age by current US: 34 weeks, 3 days. [place] by current US: 03/30/2022. Estimated weight: 2200 grams, +/- 330 grams, 11 %. Age by LMP: 35 weeks, 1 days. [place] by LMP: 03/25/2022. US/OB Limited With Biometrics IMPRESSION: Single live intrauterine gestation with mean gestational age of 34 weeks and 3 days. Electronically Signed: Gianluca Gaytan MD at 15:23 EST ,
== END | disposition home or self-care (01) ==
PROVIDERS: PCP Family Medicine; Visit Provider Obstetrics & Gynecology
DX: O09.523 Supervision of elderly multigravida, third trimester (principal); Z3A.34 34 weeks gestation of pregnancy
CPT/HCPCS: 76816

== ENCOUNTER → 2022-02-25 | Outpatient (CLI) | payer OTHER, SELFPAY | END | disposition home or self-care (01) | LOC: LABSPEC 12:02 | PROVIDERS: PCP Family Medicine; Visit Provider Obstetrics & Gynecology | DX: Z34.90 Encounter for supervision of normal pregnancy, unspecified, unspecified trimester (principal) | CPT/HCPCS: 87081 ==

== ENCOUNTER → 2022-03-13 | Outpatient (CLI) | payer OTHER, SELFPAY ==
--- NOTE | 2022-03-13 07:58 | US_ITS ---
STUDY: SECOND AND THIRD TRIMESTER OBSTETRICAL ULTRASOUND - LIMITED REASON FOR EXAM: Female, 36 years old growth -- Needs to be done at 3 weeks per doctor for delivery plans LMP: 06/18/2021 PRIOR ULTRASOUND: Comparison is made with prior study dated 02/19/2022. TECHNIQUE: Transabdominal TECHNICAL QUALITY: Adequate. FINDINGS: There is a single intrauterine fetus. The fetus is in a cephalic presentation. There is demonstrated cardiac activity with a heart rate of 144 bpm. There is a normal amniotic fluid volume. The largest amniotic fluid pocket measures 5.6 x 4.4 cm. The amniotic fluid index (POOL) is 17.35 cm. The placenta is fundal in location. There are Grade 0 placental changes. BIOMETRY: BPD: 9.15 cm: 37 weeks, 1 days HC: 33.41 cm: 38 weeks, 1 days AC: 32.03 cm: 36 weeks, 0 days FL: 6.71 cm: 34 weeks, 3 days Age by LMP: 38 weeks, 2 days. [place] by LMP: 03/25/2022. age by prior US: 37 weeks, 4 days. [place] by prior US: 03/30/2022. age by current US: 37 weeks, 0 days. [place] by current US: 04/03/2022. Estimated weight: 2794 grams, +/- 419 grams, 13 percentile. US/OB Limited With Biometrics IMPRESSION: Single live uterine gestation with mean gestational age of 37 weeks and 4 days. The measurements obtained today fall within the normal expected range. Electronically Signed: Gianluca Gaytan MD at 12:36 EST ,
== END | disposition home or self-care (01) ==
LOC: US 07:57
PROVIDERS: PCP Family Medicine; Visit Provider Obstetrics & Gynecology
DX: O26.849 Uterine size-date discrepancy, unspecified trimester (principal); O09.513 Supervision of elderly primigravida, third trimester; Z3A.37 37 weeks gestation of pregnancy
CPT/HCPCS: 76816

== ENCOUNTER 2022-03-23 03:06 | Inpatient (IN) | payer OTHER, SELFPAY ==
[2022-03-23] VITALS (39 sets, daily range): BP systolic 106–147; BP diastolic 65–90; PULSE 62–101; RESP 16; TEMP 36.3–37.5; O2SAT 97–100; BMI 25.9
[2022-03-23 03:05] LABS: ROM Internal Control Test YES-OK TO RESULT pt. (Internal QC); ROM Patient Test POSITIVE (Negative)
[2022-03-23 03:35] LABS: Absolute Lymphocyte Count 2.73 X10^3/uL (0.83-4.51); Absolute Neutrophil Count 8.1 X10^3/uL (2.0-7.7); Basophil# 0.06 X10^3/uL; Basophil% 0.5 % (0-1); Eosinophil# 0.17 X10^3/uL; Eosinophils% 1.4 % (0-5); Hemoglobin 10.7 g/dL (12.0-15.0); Lymphocyte # 2.73 X10^3/ul (0.83-4.51); Lymphocyte % 22.6 % (19-41); Mean Corp Hgb Conc 31.5 g/dL (32-36); Mean Corpuscular Hgb 28.5 pg (27.0-32.0); Mean Corpuscular Volume 90.4 fL (81-99); Mean Platelet Vol. 9.6 fl (6.2-12.0); Monocyte# 0.88 X10^3/uL; Monocyte% 7.3 % (0-10); NRBC Flagged by Analyzer 0 % (0-5); Neutrophil # 8.14 X10^3/uL (2.7-7.7); Neutrophil % 67.5 % (47-70); Platelet Count 333 K/mm3 (150-450); RBC Distribution Width CV 12.7 % (11.6-14.6); RBC Distribution Width SD 41.7 fl (35.1-43.9); Red Blood Count 3.76 M/mm3 (4.2-5.4); White Blood Count 12.1 K/mm3 (4.4-11.0)
--- NOTE | 2022-03-23 04:33 | HP.PCM.OB_ITS ---
HPI - General General Date of Admission: 03/23/22 HPI Narrative SHAUNA GONZALEZ, is a 36 F who presents IAL 4 cm ruptured Maternal Data Information [place] Calculator Estimated Delivery Date Method Current WG Current Estimate 03/25/22 LMP (Certain) 39w 5d PFSH PFS Medical History (Updated 03/23/22 @ 04:[address] Gaby Argueta MD) Abnormal Pap smear of cervix Home Medications vit 122-ferrous fumarate 27 mg iron-folic acid 800 mcg tablet 1 ea PO DAILY 01/28/16 [History Last Taken 06/26/19] Allergy/AdvReac Type Severity Reaction Status Date / Time Penicillins [PCN] AdvReac Unknown Verified 03/23/22 03:00 Family History Mother Brain aneurysm Father Depression Grandfather CVA (cerebral vascular accident) Heart disease Grandmother Cancer Surgical History S/P hernia repair S/P tonsillectomy Social History Smoking Status: Never smoker alcohol intake: never substance use type: does not use caffeine: Yes what type of physical activity do you participate in: walking and weight training frequency: 3-4 times per week seatbelt use: always do you feel safe at home: Yes additional social history: [employer] at [employer] Patient is research associate at [employer] History 3 Elective abortions Hx Para 2 Spontaneous abortions Hx # Term Pregnancies Ectopic pregnancies Hx # Pregnancies Multiple births # of living children 2 Past Pregnancies Del. Date Name GA/Weeks Outcome Route Bth Weight Infant Gen Labor Lgth Anesthesia Del Locatn Provider FOB 05/22/16 Humera 41 live - full term 7lbs 6oz Female 5 hours none [facility] Dr. Kendall Padilla 07/01/19 [place] live - full term Female [facility] Dr. Gaby Argueta Delivery Date: 05/22/16 Last Updated by: Katey Reynolds Gestational diabetes Delivery Date: 07/01/19 Last Updated by: Katey Reynolds [email or web address] Visit Details Expected Delivery Route/Plan Labor Preferences- CB/BF classes: [] labor support person: [Randy] labor intervention preferences: [] pain management options preferred: minimal intervention cut cord/dad catch: [] : [] PP control planned: [] discussed possible routes of delivery and associated risks: [] special requests: [] Plans Covid status: discussed Flu vaccine: discussed Tdap vaccine: declines Rhogam: [na] LARC form signed: complete Problem list reviewed and updated with the most current plan of care details and appropriate orders placed. Relevant counseling for the gestational age provided. Continue routine care and follow up unless otherwise noted in visit notes/problem list details OB Flowsheet Initial Weight: Not Recorded Date -?-?-?-?-?-?-?-?-?-?-?-?- EGA Weight BP Urine Prot -?-?-?-?-?-?-?-?-?-?-?-?- Glucose FHR FuHt Pres Dilation -?-?-?-?-?-?-?-?-?-?-?-?- Effaced St Visit Note 08/23/21 -?-?-?-?-?-?-?-?-?-?-?-?- 9w 3d 50.802 kg 120/72 -?-?-?-?-?-?-?-?-?-?-?-?- 185 -?-?-?-?-?-?-?-?-?-?-?-?- SM- CRL 1.8cm co ns with LMP 09/14/21 -?-?-?-?-?-?-?-?-?-?-?-?- 12w 4d 50.065 kg 104/70 Negati ve -?-?-?-?-?-?-?-?-?-?-?-?- Negative 150 -?-?-?-?-?-?-?-?-?-?-?-?- JV- CRL consiste nt with established GA from last visit. no complaints. normal NIPT. 10/08/21 -?-?-?-?-?-?-?-?-?-?-?-?- 16w 0d 51.483 kg 102/62 Negati ve -?-?-?-?-?-?-?-?-?-?-?-?- Negative 150 -?-?-?-?-?-?-?-?-?--?-?-?- SM- no vb lof cr amping reviewed labs 11/05/21 -?-?-?-?-?-?-?-?-?-?-?-?- 20w 0d 51.88 kg 110/80 -?-?-?-?-?-?-?-?-?-?-?-?- 140 -?-?-?-?-?-?-?-?-?-?-?-?- SM- n ovb lof go od fm no regular ctx 12/06/21 -?-?-?-?-?-?-?-?-?-?-?-?- 24w 3d 53.524 kg 118/62 Negati ve -?-?-?-?--?-?-?-?-?-?-?-?- Negative 143 25 -?-?-?-?-?-?-?-?-?-?-?-?- JV- no complaint s today. + FM. plan for gct next visit. 01/03/22 -?-?-?-?-?-?-?-?-?-?-?-?- 28w 3d 56.416 kg 123/73 Negati ve -?-?-?-?-?-?-?-?-?-?-?-?- Negative 144 28 -?-?-?-?-?-?-?-?-?-?-?-?- JV- declines tda p. no complaints. no kidney stones yet and is drinking diet sprite daily. NOrmal gct. pt wants doc delivery only. but is ok to see police detention attendant in office. has very high anxiety and needle phobia. 01/16/22 -?-?-?-?-?-?-?-?-?-?-?-?- 30w 2d 57.153 kg 100/62 Negati ve -?-?-?-?-?-?-?-?-?-?-?-?- Negative 140 30 -?-?-?-?-?-?-?-?-?-?-?-?- LC-doing well. d enies concerns. no lof,vb,ctx. good fm. larc signed. reviewed normal glucose results 01/30/22 -?-?-?-?-?-?-?-?-?-?-?-?- 32w 2d 58.06 kg 123/77 Negativ e -?-?-?-?-?-?-?--?-?-?-?-?- Negative 145 33 -?-?-?-?-?-?-?-?-?-?-?-?- JV- pt is doing well and no complaints. still drinking diet sprite every day to help with kidney stones. no lof, vaginal bleeding, or dec fm. 02/11/22 -?-?-?-?-?-?-?-?-?-?-?-?- 34w 0d 59.931 kg 122/82 Negati ve -?-?-?-?-?-?-?-?-?-?-?-?- Negative 140 34 -?-?-?-?-?-?-?-?-?-?-?-?- SM- no vb lof go od fm n oregualr ctx 02/25/22 -?-?-?-?-?-?-?-?-?-?-?-?- 36w 0d 60.781 kg 132/64 132/64 -?-?-?-?-?-?--?-?-?-?-?-?- 140 36 Cephalic 1 -?-?-?-?-?-?-?-?-?-?-?-?- SM- no vb lof go od fm no regular ctx gbs done 03/06/22 -?-?-?-?-?-?-?-?-?-?-?-?- 37w 2d 61.689 kg 103/72 Negati ve -?-?-?-?-?-?-?-?-?-?-?-?- Negative 145 32 Cephalic 1 -?-?-?-?-?-?-?-?-?-?-?-?- JV- growth scan from 35 weeks showed 11th%. today measuring 32 cm. normal fluid today. will rpt growth at 38 weeks and in no interval growth or less than 10th will need to at least do nsts and deliver at 39 weeks or sooner. pt understands. 03/13/22 -?-?-?-?-?-?-?-?-?-?-?-?- 38w 2d 63.049 kg 114/62 Negati ve -?-?-?-?-?-?-?-?-?-?-?-?- Negative 144 37 Cephalic 1 .5 -?-?-?-?-?-?-?-?-?-?-?-?- - JV- growth today showed good interval growth. POOL 11, 12th% growth. 03/21/22 -?-?-?-?-?-?-?-?-?-?-?-?- 39w 3d 64.07 kg 135/88 Negativ e -?-?-?-?-?-?-?-?-?-?-?-?- Negative 140 38 Cephalic 2 -?-?-?-?-?-?-?-?-?-?-?-?- - SM- no vb lof good fm no regular ctx membranes swept, discussed IOL patient prefers exp management, plan nst next friday03/23/22 -?-?-?-?-?-?-?-?-?-?-?-?- 39w 5d 62.142 kg 123/83 122/67 -?-?-?-?-?-?-?-?-?-?-?-?- -?-?-?-?-?-?-?-?-?-?-?-?- Vital Signs Vital Signs Vital Signs: 03/23/22 02:39 03/23/22 02:40 03/23/22 02:40 Temperature 98.4 F Pulse Rate 92 Blood Pressure 123/83 H BP Systolic 123 BP Diastolic 83 Pulse Ox 03/23/22 02:40 Temperature Pulse Rate Blood Pressure BP Systolic BP Diastolic Pulse Ox 98 Weight Weight: 62.142 kg Body Mass Index (BMI) 25.9 Labs Labs Labs: Blood Type B POSITIVE Antibody Screen NEGATIVE Hct 34.0 % (37-47) L Hgb 10.7 g/dL (12.0-15.0) L Obstetrics US Syphilis Total Ab Non-reactive Rubella IgG Antibody Reactive (Nonreactive) Hep Bs Antigen Non-Reactive (Nonreactive) Chlamydia DNA (BRIE) Negative (Negative) Neisseria gonorrhoeae DNA (BRIE) Negative (Negative) HIV 1&2 Antibody Non-Reactive (Nonreactive) Glucose 1 Hr 50 gm 104 mg/dL (70-140) Rhogam given: No Miscellaneous Test Assessment & Plan (1) Small for gestational age fetus: COMMENT: rpt growth at 38 weeks for delivery plans (2) AMA (advanced maternal age) multigravida 35+: QUALIFIERS: Trimester: third trimester Qualified Code(s): O09.523 - Supervision of elderly multigravida, third trimester COMMENT: nipt low risk, 36 week growth US. twice weekly nst after 40. IOL 41 (3) Needle phobia: COMMENT: severe. been in therapy for years and has been working on it. try and limit lab draws. (4) : QUALIFIERS: Weeks of gestation: 39 weeks Qualified Code(s): Z3A.39 - 39 weeks gestation of COMMENT: ONLY. GBS Negative, girl low risk. carrier and ntd declined. Anatomy US normal but limited-FU scheduled. 03/13 nl growth, EFW 2794 gm +/- 419 gms, 13%. (5) Supervision of high-risk : QUALIFIERS: Trimester: third trimester Qualified Code(s): O09.93 - Supervision of high risk , unspecified, third trimester COMMENT: PRR [place] 03/25/22 girl PC Hortensia Grubbs Randy (Barbara) (6) Dysthymia: COMMENT: therapy with marisol garcia (7) History of gestational diabetes: COMMENT: 1 TM GCT. normal this (8) SROM (spontaneous rupture of membranes): PLAN: Plan admit IAL SROM exp management
--- NOTE | 2022-03-23 04:39 | OP.PCM_ITS ---
Assessment & Plan (1) SROM (spontaneous rupture of membranes): (2) Small for gestational age fetus: COMMENT: rpt growth at 38 weeks for delivery plans (3) AMA (advanced maternal age) multigravida 35+: QUALIFIERS: Trimester: third trimester Qualified Code(s): O09.523 - Supervision of elderly multigravida, third trimester COMMENT: nipt low risk, 36 week growth US. twice weekly nst after 40. IOL 41 (4) Needle phobia: COMMENT: severe. been in therapy for years and has been working on it. try and limit lab draws. (5) : QUALIFIERS: Weeks of gestation: 39 weeks Qualified Code(s): Z3A.39 - 39 weeks gestation of COMMENT: DR ONLY. GBS Negative, girl low risk. carrier and ntd declined. Anatomy US normal but limited-FU scheduled. 03/13 nl growth, EFW 2794 gm +/- 419 gms, 13%. (6) Supervision of high-risk : QUALIFIERS: Trimester: third trimester Qualified Code(s): O09.93 - Supervision of high risk , unspecified, third trimester COMMENT: PRR [place] 03/25/22 girl PC Hortensia Grubbs Randy (Barbara) (7) Dysthymia: COMMENT: therapy with marisol garcia (8) History of gestational diabetes: COMMENT: 1 TM GCT. normal this Maternal Data Information [place] Calculator Estimated Delivery Date Method Current WG Current Estimate 03/25/22 LMP (Certain) 39w 5d Vaginal Delivery Operative Information Date of Procedure: 03/23/22 Pre-Operative Diagnosis: IAL Post-Operative Diagnosis: same Surgery / Procedure Performed: Spontaneous Vaginal Delivery Type of Anesthesia: None Special Medications: none Estimated Blood Loss: 100 Fluids Replaced: crystalloid Findings Description of Procedure: Patient began pushing and delivered the head in the DESTINEY presentation. The head was delivered atraumatically and a loose nuchal cord ?1 was identified and the delivered through without complication. The anterior and posterior shoulders delivered without complication followed by the rest of the and the was placed on the maternal abdomen. Delayed cord clamping was employed for approximately 60 seconds. Cord was clamped and cut and gentle traction was applied to the cord and the placenta delivered spontaneously immediately following it was noted to be intact with three-vessel cord. The perineum and vagina were inspected and noted to have no laceration. EBL was 100 cc. Patient and infant tolerated delivery well. Presentation: DESTINEY Amniotic Membrane Rupture Type: Spontaneous Amniotic Fluid Description: Clear Placental Delivery Description: Spontaneous Placenta Disposition: [facility] Cord Vessel Description: 3 Vessels Cord Entanglement: None Delayed Cord Clamping: Yes Post Vaginal Delivery Episiotomy Description: None Laceration: None Complication Complications: None Procedures Urinary/Genital [id number]: [id number] Vaginal Delivery [facility]
--- NOTE | 2022-03-23 04:43 | DCINST_ITS ---
Discharge Instructions Diet Discharge Diet: No restrictions Activity Discharge Activity: Return to Normal Activity, May Drive, May Shower and May Take a Tub Bath (in 4 weeks) May resume sexual activity in: 6-8 weeks (after seen by OB provider) Weight Bearing Status: Full weight bearing Lifting Restrictions: none Dressing / Incision Call your doctor if you observe: Fever of 101 or Higher, Inability to urinate, Using more than 1 pad per hour (for more than 2 hours in a row or more), Shortness of breath, Dizziness, Chest pain and - (headache not controlled with tylenol, change in vision) Follow Up Care When: in 6 weeks for visit, call the office to make the appointment. If you had elevated blood pressures call the office to be seen within 1 week. Test Results: Test results from this visit will be discussed in further detail at your follow- up appointment, if applicable. Discharge Plan Admission Admit Date/Time: 03/23/22 03:06 Attending Provider: Gaby Argueta Primary Care Provider: Mika Steven Discharge Orders/Prescriptions Prescriptions: No Action [id number] acid 1 EACH tablet 1 ea PO DAILY Label Comments: Referrals / Follow Up: Mika Steven MD [Primary Care Provider] - Disposition Disposition (needs filled in before D/C Order can be placed): Home, Self Care
[2022-03-23] MEDS: Acetaminophen 500 MG Tablet 1000 MG PO ×3 (05:21→18:20)
[2022-03-23] MEDS: Naproxen 500 MG Tablet PO ×2 (06:51→16:12)
[2022-03-24] MEDS: Acetaminophen 500 MG Tablet 1000 MG PO ×2 (00:32→10:31)
[2022-03-24] MEDS: Naproxen 500 MG Tablet PO ×2 (00:32→10:31)
[2022-03-24 05:26] VITALS: BP 93/52; PULSE 80
[2022-03-24 05:27] VITALS: BP 93/52; PULSE 80; RESP 16; TEMP 36.6
[2022-03-24 08:22] VITALS: BP 111/73; PULSE 80; PULSE 82; RESP 16; TEMP 37.1; O2SAT 98
--- NOTE | 2022-03-24 09:50 | PCM.PN.OB ---
Subjective Subjective Patient doing well without complaints. Tolerating PO. Ambulating and voiding without difficulty. Feeding well. Denies chest pain, shortness of breath, calf pain/swelling, fevers, chills, lightheadedness. Objective Data Objective Data Vital Signs: Vital Signs Temp Pulse Resp BP Pulse Ox O2 Del Method 98.8 F 82 16 111/73 98 Room Air 03/24/22 08:22 03/24/22 08:22 03/24/22 08:22 03/24/22 08:22 03/24/22 08:22 03/24/22 08:22 Oxygen Delivery Method Room Air Weight: 137 lb Body Mass Index (BMI) 25.9 Intake & Output: Intake and Output for Last 24 Hours 03/22/22 03/23/22 03/24/22 23:59 23:59 23:59 Output Total 500 / 500 Balance -500 / -500 Lab / Micro Data Attestation: I reviewed the patient's lab results. Result Diagrams: 03/23/22 03:20 Physical Exam Const alert, oriented x3 and no apparent distress Eyes PERRL Neck full ROM Lymph Lymphatic: no lymphadenopathy noted Chest inspection of chest normal Nipple/Areola: nipples/areola normal Resp normal respiratory effort and normal air movement Cardio regular rate and regular rhythm GI normal to inspection, nondistended, normoactive bowel sounds GI Narrative: fundus firm at u, mild lochia rubra, no clots no CVA tenderness and external exam normal Extremity normal to inspection and full ROM Skin no rashes or lesions noted Neuro oriented x3 Psych mental status grossly normal Assessment & Plan (1) Vaginal delivery: COMMENT: SM 39 IAL girl [place] PLAN: s/p PPD # 1 1. routine post delivery care 2. breast feeding- support given 3. rh positive 4. rubella immune 5.d/c home today (2) Needle phobia: COMMENT: severe. been in therapy for years and has been working on it. try and limit lab draws. (3) Dysthymia: COMMENT: therapy with marisol garcia
--- NOTE | 2022-03-26 13:01 | NURSING ---
Had appt with Marisela , mother doing well , loved all her nurses and baby doing well with feeding.
== END 2022-03-24 10:45 | disposition home or self-care (01) | DRG 807 ==
LOC: WPOUT 03:07 → WP 03:07
PROVIDERS: Registered Nurse; Admitting Provider Obstetrics & Gynecology; PCP Family Medicine; Visit Provider Obstetrics & Gynecology
DX: O36.5930 Maternal care for other known or suspected poor fetal growth, third trimester, not applicable or unspecified (principal); Z37.0 Single live birth; O26.23 Pregnancy care for patient with recurrent pregnancy loss, third trimester; F34.1 Dysthymic disorder; O99.344 Other mental disorders complicating childbirth; Z3A.39 39 weeks gestation of pregnancy; O69.81X0 Labor and delivery complicated by cord around neck, without compression, not applicable or unspecified; Z86.32 Personal history of gestational diabetes; F40.298 Other specified phobia
CPT/HCPCS: 59025; 59050; 84112; 85025; 86850; 86900; 86901; 99218; G0378

== ENCOUNTER → 2024-12-06 | Outpatient (CLI) | payer OTHER, SELFPAY ==
--- NOTE | 2024-12-06 09:15 | BI_ITS ---
EXAM: SCRN MAMM (CAD)W/TAD BILAT DATE: 12/06/2024 CLINICAL HISTORY: F, Age 39 y/o , SCREENING MAMMOGRAM TECHNIQUE: Procedure Code: [id number] Modality: MG Procedure: SCRN MAMM (CAD)W/TAD BILAT COMPARISON: None. This is a baseline study. FINDINGS: TISSUE DENSITY: The breasts are extremely dense, which lowers the sensitivity of mammography. Bilateral Breast Mammographic Findings: There are no suspicious masses, suspicious cluster of microcalcifications, architectural distortion or secondary signs of malignancy identified in either breast. BI/SCRN MAMM (CAD)W/TAD BILAT IMPRESSION: Unremarkable screening mammogram study. OVERALL FINAL ASSESSMENT BI-RADS 1: NEGATIVE. RECOMMENDATION: Routine annual follow-up in 1 Year A letter with findings and recommendations will be mailed to the patient. Reading Location: [id number]
== END | disposition home or self-care (01) ==
LOC: OPBI 09:08
PROVIDERS: PCP Family Medicine; Referring Provider Obstetrics & Gynecology; Visit Provider Obstetrics & Gynecology
DX: Z12.31 Encounter for screening mammogram for malignant neoplasm of breast (principal)
CPT/HCPCS: 77063; 77067